=== PATIENT | female | born 1985 | race African-American/Black ===

== ENCOUNTER → 2017-07-04 | Outpatient (REF) | payer OTHER | LOC: M SFHCLERA 15:55 | DX: J02.9 Acute pharyngitis, unspecified (principal) ==

== ENCOUNTER → 2019-07-16 | Outpatient (CLI) | payer OTHER ==
--- NOTE | 2019-07-16 16:12 | REP ---
DIGITAL DIAGNOSTIC UNILATERAL LEFT BREAST MAMMOGRAPHY WITH CAD, 3D TOMOGRAPHY, AND FOCUSED LEFT BREAST SONOGRAPHY: HISTORY: Left breast lump times 9 months. Grape size, lateral aspect left breast. No comparison imaging. MAMMOGRAPHIC FINDINGS: A skin marker is affixed to the skin at the site of the palpable lump in the left breast which projects at approximately 3-o'clock position laterally. Scattered fibroglandular elements are noted. No mass is seen at the palpable lump site or elsewhere in the left breast mammographically. No architectural distortion is noted. No microcalcific grouping or worrisome skin change is seen. 3D tomography shows no additional finding. Magnified spot views show no additional finding. SONOGRAPHIC FINDINGS: Sonographic scanning through the 3-o'clock position palpable lump region left breast shows heterogeneous fibroglandular background echotexture. No cyst or mass is seen. No acoustic shadowing is noted. IMPRESSION: BIRADS category 1 negative findings. Clinical followup is advised. This mammogram was interpreted with the aid of an FDA-approved computer-aided detection system. The patient states she had a clinical breast exam in January 2019. This patient's estimated Tyrer-Cuzick lifetime risk assessment for breast cancer is 9.7 %. The patient letter being requested is M2.
== END ==
LOC: M WHC 14:20
PROVIDERS: ATTEND Nurse Practitioner Primary Care
DX: N63.20 Unspecified lump in the left breast, unspecified quadrant (principal)
CPT/HCPCS: 76642; 77065; G0279